=== PATIENT | female | born 1970 | race Asian ===

== ENCOUNTER 2023-09-11 05:56 | Day surgery (SDC) | payer OTHER ==
[2023-09-07 10:59] VITALS: BMI 32.1
[2023-09-11] MEDS ORDERED: fentaNYL 50 mcg/mL 1 mL Vial ONE (08:17)
[2023-09-11] MEDS ORDERED: Midazolam HCl 2 mg/2 ml Vial ONE (08:17)
[2023-09-11] MEDS ORDERED: PROPOFOL 40 ML ONE (08:22)
[2023-09-11] MEDS ORDERED: PHENYLEPHRINE-NS 100 MCG/ML 10 ML SYRINGE ONE (09:00)
== END 2023-09-11 09:43 | disposition home or self-care (01) ==
LOC: CSHSDC 05:56
PROVIDERS: ATTEND Internal Medicine Gastroenterology
PROC: 0DBN8ZZ Excision of Sigmoid Colon, Via Natural or Artificial Opening Endoscopic (ICD-10-PCS; principal; 2023-09-11)
PROC: 0D758ZZ Dilation of Esophagus, Via Natural or Artificial Opening Endoscopic (ICD-10-PCS; principal; 2023-09-11)
PROC: 0DB68ZX Excision of Stomach, Via Natural or Artificial Opening Endoscopic, Diagnostic (ICD-10-PCS; principal; 2023-09-11)
DX: Z12.11 Encounter for screening for malignant neoplasm of colon (principal); D12.5 Benign neoplasm of sigmoid colon; K25.9 Gastric ulcer, unspecified as acute or chronic, without hemorrhage or perforation; K29.50 Unspecified chronic gastritis without bleeding; R13.10 Dysphagia, unspecified; I10 Essential (primary) hypertension; E11.9 Type 2 diabetes mellitus without complications; Z79.84 Long term (current) use of oral hypoglycemic drugs; Z79.899 Other long term (current) drug therapy
CPT/HCPCS: 88305; 88342; J2250; J2704; J3010

== ENCOUNTER 2023-09-12 13:31 | Outpatient (CLI) | payer OTHER | END 2023-09-12 13:32 | disposition home or self-care (01) | LOC: CSHMAMMO 13:31 | PROVIDERS: ATTEND Nurse Practitioner | DX: Z12.31 Encounter for screening mammogram for malignant neoplasm of breast (principal) | CPT/HCPCS: 77063; 77067 ==